=== PATIENT | female | born 1950 | race Caucasian/White ===

== ENCOUNTER 2017-01-05 05:33 | Inpatient (IN) | payer MEDICARE, OTHER ==
[2017-01-02 16:03] LABS: HEMATOCRIT 37.7 % (36.0-48.0); HEMOGLOBIN 12.2 g/dL (12.0-16.0)
[2017-01-02 16:17] LABS: BUN (BLOOD UREA NITROGEN) 13 MG/DL (6-23); CALCIUM, SERUM 8.5 MG/DL (8.5-10.4); CHLORIDE, SERUM 106 MMOL/L (96-112); CO2 (CARBON DIOXIDE) 27 MMOL/L (24-34); CREATININE 0.94 MG/DL (0.55-1.02); GFR AFRICAN AMERICAN 73 ML/MIN (>=60); GFR NON AFRICAN AMERICAN 63 ML/MIN (>=60); GLUCOSE, SERUM 76 MG/DL (60-99); POTASSIUM, SERUM 3.9 MMOL/L (3.5-5.3); SODIUM, SERUM 141 MMOL/L (135-148)
--- NOTE | ~2017-01-05 | OP ---
Record Of Operation [facility] [address] [place]. [address] NAME: CORTNEY RAMIRES : 50 STATUS : ADM IN PAT#: [id number] AGE: 66 ADM/REG DATE : 01/05/17 MR#: [id number] REPORT SERV DATE: 01/05/17 DICTATED BY: ABRAHAM COLE DATE: 01/05/17 REPORT STATUS : Draft TRANSCRIBED BY: MODL DATE: 01/05/17 DATE OF PROCEDURE: 01/05/2017 PREOPERATIVE DIAGNOSIS: Cervical spondylosis and spinal stenosis, C3-4, C4-5, and C5-6. POSTOPERATIVE DIAGNOSIS: Cervical spondylosis and spinal stenosis, C3-4, C4-5, and C5-6. PROCEDURES: 1. Microscopic and navigation-assisted surgery. 2. Anterior cervical diskectomy with foraminotomy, C3-4, C4-5, and C5-6. 3. Anterior interbody fusion with cortical cancellous allograft, C3-4, C4-5, and C5-6. 4. Anterior segmental spinal instrumentation with Venture plating, C3 to C6. TROUBLE LINEMAN: Shuan Griffith. ANESTHESIA: General. BLOOD LOSS: 20 mL. INDICATION FOR SURGERY: A 66-year-old female with neck pain, shoulder and arm pain, that follows more of an upper cervical radiculopathy. The patient has plain x-rays revealing marked spondylosis and loss of cervical lordosis from C3 to C6. There is also spondylosis and collapse at C6-7, but MRI shows foraminal stenosis, severe, at C3-4, C4-5, and C5-6 but does not have problems at C6-7. She is having such intractable pain, the patient is admitted for anterior cervical diskectomy, foraminotomy. C3-4, C4-5, C5-6 interbody fusion will be carried out with allograft, and segmental instrumentation will be used to stabilize. Prior to surgery, risks, benefits, alternatives, and expectations were explained. Consent form is signed. DESCRIPTION OF PROCEDURE: Antibiotic prophylaxis given. Neurophysiology monitoring leads inserted. The patient was brought to the operative suite. General anesthetic including endotracheal intubation administered. A Shannon catheter was placed temporarily. A small towel roll was placed behind her shoulders. The scalp was painted with Betadine solution. Miller three-point fixation attached to the skull using 60 pounds of torque in standard position. The Miller was attached to the Monty bed. The [employer] navigational registration frame attached to the [place]. Isolation drapes were placed. The neck was scrubbed with Hibiclens solution. DuraPrep was painted. Sterile drapes applied. Because of the complexity of surgery and the need to identify correct level of surgery intraoperatively as well as the desire to carry out the safest and most precise dissection, we feel that intraoperative navigation is mandatory. Intraoperative CT scan with O-arm obtained. CT information was used to register the navigational system. With navigational assistance, we identified C3-4, C4-5, and C5-6. At the C4-5 level on the Record Of Operation [facility] [address] [facility] [place]. [address] NAME: CORTNEY RAMIRES : 50 STATUS : ADM IN PAT#: [id number] AGE: 66 ADM/REG DATE : 01/05/17 MR#: [id number] REPORT SERV DATE: 01/05/17 DICTATED BY: ABRAHAM COLE DATE: 01/05/17 REPORT STATUS : Draft TRANSCRIBED BY: JUS DATE: 01/05/17 left side, a transverse 2.5 cm skin incision was carried out. The platysma was incised in line with the skin incision. The superficial layer of the deep cervical fascia was released along the anterior border of the sternocleidomastoid. Blunt dissection was carried out to the retropharyngeal space where the longus colli muscles were subperiosteally elevated. Retractors were placed starting at C3-4. We re-identified the correct level of surgery after we had placed the retractors. [place] distractor pins were placed in the midbody of C3 and C4. Anterior diskectomy completed under sterilely draped microscope with diskectomy, curetting, and removal of the disk posteriorly all the way to the posterior longitudinal ligament. A 1 mm Kerrison rongeur was used to carry out the removal of the posterior longitudinal ligament as well as debride the uncinate medially and decompress the canal medially. With navigational assistance, we identified the location of the foramen transversarium, estimated the location of the vertebral body. We dissected as far lateral as we could dissect through the uncinate processes as to decompress the foramen as much as possible. The width, depth, and height of the disk space was measured, and a cortical cancellous wedge-shaped allograft inserted in the midline. Traction was released locking the graft in good position. We then moved to C4-5 and completed the same identical steps with diskectomy, foraminotomy, and interbody fusion with again a wedge-shaped allograft and finally moved to C5-6 with the final diskectomy and foraminotomy and interbody grafting. An eight-hole plate was then placed over the anterior bodies of C3 to C6. It was properly positioned in the midline with navigational assistance. We drilled the holes. The locking screws were inserted providing rigid stability. AP and lateral x-ray showed excellent position of all implants, good amish of disk height for an indirect decompression of the lateral foramen. There was also good amish of disk height and good increase in lordosis. The wound was irrigated. The wound was completely dry. We did not feel a drain was necessary. The platysma was closed with a running 3-0 Vicryl suture. The subcutaneous tissue was closed with 3-0 Vicryl suture. A subcuticular 4-0 PDS was used for skin closure. Sterile dressings applied. The patient awakened, extubated, and taken to the recovery room in satisfactory condition having tolerated the procedure well. Sponge, needle, and instrument counts were correct. There were no intraoperative complications noted. SANTA/JUS Abraham Cole D.O. / [id number] CC: Abraham Cole D.O.
[~2017-01-05 05:33] MED LIST: BETAPACE80 PO; C5 PO; CALCIUM/D3 PO; CARDCD180 PO; CYTO5 PO; ESTRACE1 MG PO; EXCEDRIN PO; FISH-EPA1000 MG PO; LEVOTHYROXIN50 MCG PO; LOP25 PO; METAMUCIL CAN7 OZ PO; MULTIPLE VIT PO; PRADAXA; RANITIDINE300 MG PO; TAMBOCOR PO; VITC500 PO; VIVELLE-DOT0.1 MG TOP; XARELTO PO; ZANTAC150 MG PO; ZYRTEC ALLGY10 MG PO
== END 2017-01-06 10:44 | disposition home or self-care (01) | DRG 473 ==
LOC: SDC/OF 05:33 → PACU 09:49 → 3SO 12:30
PROVIDERS: Orthopaedic Surgery Orthopaedic Surgery of the Spine
PROC: 4A11X4G Monitoring of Peripheral Nervous Electrical Activity, Intraoperative, External Approach (ICD-10-PCS; 2017-01-05)
PROC: 0RG20A0 Fusion of 2 or more Cervical Vertebral Joints with Interbody Fusion Device, Anterior Approach, Anterior Column, Open Approach (ICD-10-PCS; principal; 2017-01-05 06:45)
PROC: 0RT30ZZ Resection of Cervical Vertebral Disc, Open Approach (ICD-10-PCS; 2017-01-05 06:45)
DX: M50.31 Other cervical disc degeneration, high cervical region (principal)
CPT/HCPCS: 80048; 82962; 85014; 85018; 87641; 88304; 88311; 93005; A9270-GY; C1713; C1768; J0690; J1170; J2250; J2405; J2710; J3010; P9045